=== PATIENT | male | born 1970 ===

== ENCOUNTER 2024-01-15 12:18 | Emergency (ER) | payer MEDICAID ==
[2024-01-15] MEDS: ceFAZolin 2 GM Vial IVPUSH ONE (12:35)
[2024-01-15] MEDS: LORazepam 2 MG/ML SDV IVPUSH ONE ×2 (12:48→13:28)
[2024-01-15] MEDS: Sodium Chloride 0.9% 1,000 ML IV ONE ×2 (12:54→13:00)
[2024-01-15 12:58] LABS: BASOPHILS PERCENT AUTO 0.8 % (0.0-1.0); EOSINOPHILS PERCENT AUTO 1.1 % (1.0-3.0); HEMATOCRIT 39.6 % (40.0-54.0); HEMOGLOBIN 13.5 g/dL (14.0-18.0); LYMPHOCYTES PERCENT AUTO 18.8 % (20.5-50.1); MEAN CORPUSCULAR HEMOGLOBIN 30.1 pg (27.0-34.0); MEAN CORPUSCULAR HGB CONC 34.1 g/dL (33.0-35.0); MEAN CORPUSCULAR VOLUME 88.2 fL (80-100); NEUTROPHILS PERCENT AUTO 74.3 % (42.2-75.2); PLATELET COUNT,PLT 364 10^3/uL (150-450); RED BLOOD CELL COUNT 4.49 10^6/uL (4.6-6.2); WHITE BLOOD CELL COUNT,WBC 10.7 10^3/uL (5.0-10.0)
[2024-01-15 13:09] LABS: AMPHETAMINES,URINE POSITIVE (NEGATIVE); BARBITURATES,URINE NEGATIVE (NEGATIVE); BENZODIAZEPINE,URINE NEGATIVE (NEGATIVE); MDMA (ECSTASY), URINE POSITIVE (NEGATIVE); METHADONE,URINE NEGATIVE (NEGATIVE); METHAMPHETAMINES,URINE POSITIVE (NEGATIVE); OPIATES,URINE NEGATIVE (NEGATIVE); OXYCODONE,URINE NEGATIVE (NEGATIVE); PHENCYCLIDINE,URINE NEGATIVE (NEGATIVE); TCA,URINE NEGATIVE (NEGATIVE)
[2024-01-15 13:18] LABS: ALANINE AMINOTRANSFERASE,ALT 26 U/L (16-63); ALBUMIN 3.2 g/dL (3.4-5.0); ALKALINE PHOSPHATASE 98 U/L (46-116); ANION GAP 18.1 mEq/L (7-13); ASPARTATE AMNIOTRANSFERASE,AST 15 U/L (15-37); BILIRUBIN TOTAL 0.3 mg/dL (0.2-1.0); BLOOD UREA NITROGEN,BUN 16 mg/dL (7-18); CALCIUM 7.7 mg/dL (8.5-10.1); CARBON DIOXIDE,CO2 19 mmol/L (21-32); CHLORIDE,CL 106 mmol/L (98-107); GLUCOSE RANDOM 196 mg/dL (70-99); POTASSIUM,K 3.1 mmol/L (3.5-5.1); PROTEIN TOTAL,TP 6.4 g/dL (6.4-8.2); SODIUM,NA 140 mmol/L (136-145)
[2024-01-15 13:23] LABS: ESTIMATED GFR 91 mL/min (>=60)
[2024-01-15 13:45] LABS: PROTHROMBIN TIME 9.9 SEC (9.0-12.0)
[2024-01-15] MEDS: Potassium Chloride 10 MEQ Tab.ER PO ONE (13:47)
[2024-01-15] MEDS: fentaNYL 100 MCG/2 ML SDV IVPUSH ONE (13:52)
== END 2024-01-15 14:19 ==
LOC: DL.ED 12:18
DX: S51.811A Laceration without foreign body of right forearm, initial encounter (principal); F12.10 Cannabis abuse, uncomplicated; F15.10 Other stimulant abuse, uncomplicated; F17.210 Nicotine dependence, cigarettes, uncomplicated; W26.8XXA Contact with other sharp object(s), not elsewhere classified, initial encounter; Y93.89 Activity, other specified
CPT/HCPCS: 36415; 73090; 80053; 80305; 80307; 85025; 85610; 93005; 96374; 96375; 96376; 99285; A9270; J0690; J2060; J3010; J7030; 93010

== ENCOUNTER 2025-02-22 08:16 | Emergency (ER) | payer MEDICAID, OTHER | END 2025-02-22 09:44 | disposition home or self-care (01) | LOC: DL.ED 08:16 | DX: M79.641 Pain in right hand (principal); M79.631 Pain in right forearm; Y04.0XXA Assault by unarmed brawl or fight, initial encounter | CPT/HCPCS: 73130-RT; 99283 ==